=== PATIENT | male | born 1985 | race Caucasian/White ===

== ENCOUNTER 2017-11-10 16:40 | Emergency (ER) | payer SELFPAY, OTHER ==
[2017-11-10] MEDS: SODIUM CHLORIDE 0.9% 1L IRRIG IRR (19:48)
[2017-11-10] MEDS: LIDOCAINE 2% (MDV) 20 ML INJ INJ (19:49)
== END 2017-11-10 21:11 | disposition home or self-care (01) ==
LOC: FTE 16:40
DX: S61.011A Laceration without foreign body of right thumb without damage to nail, initial encounter (principal); W26.0XXA Contact with knife, initial encounter; Y92.89 Other specified places as the place of occurrence of the external cause
CPT/HCPCS: 12001; 99282-25

== ENCOUNTER 2017-11-12 12:24 | Emergency (ER) | payer OTHER | END 2017-11-12 12:41 | disposition home or self-care (01) | LOC: E/R 12:41 | DX: Z48.01 Encounter for change or removal of surgical wound dressing (principal) | CPT/HCPCS: 99281; Z7502 ==

== ENCOUNTER 2017-11-19 12:02 | Emergency (ER) | payer OTHER | END 2017-11-19 14:55 | disposition home or self-care (01) | LOC: E/R 12:02 | DX: Z48.02 Encounter for removal of sutures (principal) | CPT/HCPCS: 99281; Z7502 ==